=== PATIENT | female | born 1965 | race Two or more races ===

== ENCOUNTER 2025-04-12 21:20 | Inpatient (IN) | payer BC, OTHER ==
[~2025-04-12] VITALS: Ht 149.9 cm; Wt 75.5 kg
[2025-04-12 22:09] LABS: Urine Bacteria None Seen /hpf (None Seen)
--- NOTE | 2025-04-12 22:22 | ED.PDOC ---
General HPI Comments 59-year-old female who came to ER for abdominal pain. Patient has history of recurrent UTIs and kidney stones. States for the past 3 weeks she has been having intermittent episodes of epigastric abdominal pain, and lower back pains. Noted to have nausea but denies any vomiting diarrhea or changes in bowel habits. Patient states she feels like she might be having another kidney infection. Chief Complaint: Abdominal Pain Time Seen by MD: 22:21 Reviewed notes: Nurses Notes Allergies: Coded Allergies: NO KNOWN ALLERGIES (Unverified , 04/12/25) Information Source: Patient Mode of Arrival: Ambulatory Severity: Moderate Inability to void: Moderate Timing: Weeks (3) Duration: Intermittent Has not urinated for: Minutes Prehospital treatment: None Onset: Spontaneous History of: UTI, Kidney stone Location: Abdomen, Other (lower back) associated signs and symptoms: Abdominal Pain, Nausea, Back Pain Past Medical History PAST MEDICAL HISTORY: Kidney Stones, UTI'S Surgical History: Denies all surgeries Surgical History (Other): Surgical removal of kidney stone left 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 REGISTERED NURSE Hx Family History Family History: Reviewed,noncontributory to illness Social History Smoker: Non-Smoker Alcohol: Denies ETOH Use Drugs: Denies Drug Use Lives In: Home Constitutional: denies: chills, diaphoresis, fatigue, fever, malaise, sweats, weakness, others EENTM: denies: blurred vision, double vision, ear bleeding, ear discharge, ear drainage, ear pain, ear ringing, eye pain, eye redness, hearing loss, mouth pain, mouth swelling, nasal discharge, nose bleeding, nose congestion, nose pain, photophobia, tearing, throat pain, throat swelling, voice changes, others Respiratory: denies: cough, hemoptysis, orthopnea, SOB at rest, shortness of breath, SOB with excertion, stridor, wheezing, others Cardiovascular: denies: chest pain, dizzy spells, diaphoresis, Dyspnea on exertion, edema, irregular heart beat, left arm pain, lightheadedness, palpitations, PND, syncope, others Gastrointestinal: reports: abdominal pain; denies: abdomen distended, blood streaked bowels, constipated, diarrhea, dysphagia, difficulty swallowing, hematemesis, melena, nausea, poor appetite, poor fluid intake, rectal bleeding, rectal pain, vomiting, others Genitourinary: denies: abnormal vagina bleeding, burning, dyspareunia, dysuria, flank pain, frequency, hematuria, incontinence, pain, , vagina d ischarge, urgency, others Neurological: denies: dizziness, fainting, headache, left sided numbness, left sided weakness, numbness, paresthesia, pre-existing deficit, right sided numbness, right sided weakness, seizure, speech problems, tingling, tremors, weakness, others Musculoskeletal: reports: back pain; denies: gout, joint pain, joint swelling, muscle pain, muscle stiffness, neck pain, others Integumetry: denies: bruises, change in color, change in hair/nails, dryness, laceration, lesions, lumps, rash, wounds, others Allergic/Immunocompromised: denies: Difficulty Healing, Frequent Infections, Hives, Itching, others Hematologic/Lymphatic: denies: anemia, blood clots, easy bleeding, easy bruising, swollen glands, others Endocrine: denies: excessive hunger, excessive sweating, excessive thirst, excessive urination, flushing, intolerance to cold, intolerance to heat, unexplained weight gain, unexplained weight loss, others Psychiatric: denies: anxiety, bipolar disorder, depression, hopeless, panic disorder, schizophrenia, sleepless, suicidal, others Physical Exam General Appearance: No Apparent Distress, Normal HEENT: Normal ENT Inspection, Pharynx Normal, TMs Normal Neck: Full Range of Motion, Non-Tender, Normal, Normal Inspection Respiratory: Chest Non-Tender, Lungs Clear, No Accessory Muscle Use, No Respiratory Distress, Normal Breath Sounds Cardiovascular: No Edema, No JVD, No Murmur, No Gallop, Normal Peripheral Pulses, Regular Rate/Rhythm Breast Exam: Deferred Gastrointestinal: No Organomegaly, Non Tender, No Pulsatile Mass, Normal Bowel Sounds, Soft Genitalia: Deferred Pelvic: Deferred Rectal: Deferred Extremities: No calf tenderness, Normal capillary refill, Normal inspection, Normal range of motion, Non-tender, No pedal edema Musculoskeletal : Apperance: Normal Neurologic: Alert, sergeant of officers II-XII nml as Tested, No Motor Deficits, Normal Affect, Normal Mood, No Sensory Deficits Cerebellar Function: Normal Reflexes: Normal Skin: Dry, Normal Color, Warm Lymphatic: No Adenopathy Was a procedure done? Was a procedure done?: No Differential Diagnosis Kidney stone (Female): Musculoskeletal pain, Pyelonephritis, Renal failure, Strain, Urinary obstruction, Urolithiasis Urinary Problem (Female): Pyelonephritis, Urinary retention, Urolithiasis, UTI X-Ray, Labs, Meds, VS Vital Signs Date Time Temp Pulse Resp B/P (MAP) Pulse Ox O2 Delivery O2 Flow Rate FiO2 04/12/25 22:00 97.9 79 16 150/70 (96) 96 97.9 Lab Test 04/12/25 22:49 04/12/25 22:00 Range/Units White Blood Count 8.4 4.4-10.8 10^3/uL Red Blood Count 4.42 4.0-5.20 10^6/uL Hemoglobin 13.4 12.2-16.2 g/dL Hematocrit 39.3 36.0-46.0 % Mean Corpuscular Volume 88.9 80.0-100.0 fL Mean Corpuscular Hemoglobin 30.3 28.0-32.0 pg Mean Corpuscular Hemoglobin Concent 34.1 32.0-36.0 g/dL Red Cell Distribution Width 14.1 11.8-14.3 % Platelet Count 378 140-450 10^3/uL Mean Platelet Volume 7.2 6.9-10.8 fL Neutrophils (%) (Auto) 58.9 37.0-80.0 % Lymphocytes (%) (Auto) 30.4 10.0-50.0 % Monocytes (%) (Auto) 6.0 0.0-12.0 % Eosinophils (%) (Auto) 3.8 0.0-7.0 % Basophils (%) (Auto) 0.9 0.0-2.0 % Neutrophils # (Auto) 4.9 1.6-8.6 10 ^3/uL Lymphocytes # (Auto) 2.5 0.4-5.4 10 ^3/uL Monocytes # (Auto) 0.5 0-1.3 10 ^3/uL Eosinophils # (Auto) 0.3 0-0.8 10 ^3/uL Basophils # (Auto) 0.1 0-0.2 10 ^3/uL Nucleated Red Blood Cells 0.1 % Sodium Level 143 136-145 mmol/L Potassium Level 4.1 3.5-5.1 mmol/L Chloride Level 108 H 98-107 mmol/L Carbon Dioxide Level 28 20-31 mmol/L Anion Gap 7 5-15 Blood Urea Nitrogen 16 9-23 mg/dL Creatinine 0.59 0.550-1.02 mg/dL Glomerular Filtration Rate Calc 103 >90 mL/min BUN/Creatinine Ratio 27.1 H 10.0-20.0 Serum Glucose 111 H 74-106 mg/dL Lactic Acid Level 1.4 0.4-2.0 mmol/L Calcium Level 9.5 8.7-10.4 mg/dL Urine Color Light-yellow Yellow Urine Clarity Turbid H Clear Urine pH 6.0 5.0-9.0 Urine Specific [place] 1.026 1.001-1.035 Urine Protein Negative Negative Urine Ketones Negative Negative Urine Blood Trace H Negative /uL Urine Nitrite Negative Negative Urine Bilirubin Negative Negative Urine Urobilinogen Normal Negative mg/dL Urine Leukocyte Esterase 3+ Negative /uL Urine RBC <1 0 - 4 /hpf Urine Microscopic WBC 214 H 0-5 /HPF Urine Squamous Epithelial Cells Few <5 /hpf Urine Bacteria None seen None Seen /hpf Urine Hyaline Casts Few 0 - 2 /lpf Urine Mucus Few None Seen Urine Glucose Normal Normal mg/dL Time of 1ST Reevaluation: 22:17 Reevaluation 1ST: Unchanged Patient Education/Counseling: Diagnosis, Treatment Family Education/Counseling: No Family Present Sepsis Sepsis Reasesment Focused Exam Orders: Laboratory Tests 04/12/25 22:49: Lactic Acid Level 1.4 Departure 1 Departure Time of Disposition: 23:40 (Patient with complicated urinary tract infection. Empirically cover patient antibiotics admit them for further workup.) Impression: Primary Impression: Complicated urinary tract infection Disposition: ADMITTED INPATIENT Admit to: Med Surg Condition: Serious Critical Care Note Critical Care Time?: No Stability Stability form required: No Heart Score Heart Score: Heart Score Response (Comments) Value History N/A 0 EKG N/A 0 Age N/A 0 Risk Factors N/A 0 Troponin N/A 0 Total 0 I personally scribed for QUIQUE ONEILL MD ([email or web address]) on 04/12/25 at 22:22. Electronically submitted by Eitan Myles ([email or web address]). QUIQUE ONEILL MD April 12, 2025 22:22
[2025-04-12 22:30] LABS: Urine Blood TRACE /uL (Negative); Urine Clarity Turbid (Clear); Urine Color Light-Yellow (Yellow); Urine Hyaline Cast FEW /lpf (0 - 2); Urine Mucus FEW (None Seen); Urine Protein, UAD Negative (Negative); Urine Specific Gravity 1.026 (1.001-1.035); Urine Squamous Epithelial Cell FEW /hpf (<5); Urine Urobilinogen Normal (Negative); Urine WBC 214 /HPF (0-5)
[2025-04-12 23:07] LABS: Basophils # (auto) 0.1 10 ^3/uL (0-0.2); Basophils % (auto) 0.9 % (0.0-2.0); Eosinophils # (auto) 0.3 10 ^3/uL (0-0.8); Eosinophils % (auto) 3.8 % (0.0-7.0); Hematocrit 39.3 % (36.0-46.0); Hemoglobin 13.4 g/dL (12.2-16.2); Lymphocytes # (auto) 2.5 10 ^3/uL (0.4-5.4); Lymphocytes % (auto) 30.4 % (10.0-50.0); Mean Corpuscular Hemoglobin 30.3 pg (28.0-32.0); Mean Corpuscular Hgb Conc. 34.1 g/dL (32.0-36.0); Mean Corpuscular Volume 88.9 fL (80.0-100.0); Monocytes # (auto) 0.5 10 ^3/uL (0-1.3); Neutrophils # (auto) 4.9 10 ^3/uL (1.6-8.6); Neutrophils % (auto) 58.9 % (37.0-80.0); Nucleated Red Blood Cells % 0.1 %; Platelet Count (auto) 378 10^3/uL (140-450); Red Blood Cells 4.42 10^6/uL (4.0-5.20); Red Cell Distribution Width 14.1 % (11.8-14.3); White Blood Cell 8.4 10^3/uL (4.4-10.8)
[2025-04-12 23:18] LABS: Potassium 4.1 mmol/L (3.5-5.1); Sodium 143 mmol/L (136-145)
[2025-04-12 23:19] LABS: Anion Gap 7 (5-15); Calcium 9.5 mg/dL (8.7-10.4); Carbon Dioxide 28 mmol/L (20-31)
[2025-04-12 23:24] LABS: BUN/Creatinine Ratio 27.1 (10.0-20.0); Blood Urea Nitrogen 16 mg/dL (9-23); Chloride 108 mmol/L (98-107); Glucose 111 mg/dL (74-106)
[2025-04-12] MEDS ORDERED: CEFEPIME 2GM/50ML NS 50 ML IV ONE (23:45)
[2025-04-13] VITALS (7 sets, daily range): BP systolic 115–136; BP diastolic 47–79; PULSE 69–84; RESP 16–20; TEMP 97.2–97.8; O2SAT 94–98
[2025-04-13] MEDS ORDERED: KETOROLAC TROMETH 30 MG/ML 1ML VIAL IV PRN (01:00)
--- NOTE | 2025-04-13 01:38 | DVH ---
Exam: CT CT AB PEL WO CON-NO ORAL OR IV History: abdominal pain h/o kidney stones Comparison Study: None Technique: Multidetector spiral CT of the abdomen was performed from lung bases to pubic symphysis. Imaging was performed without IV contrast. Axial, coronal and sagittal multiplanar reformats were ob tained from the axial data set by the technologist. Radiation Dose : 1. Abdomen/Pelvis: CTDIvol mGy, DLP mGy*cm. Findings: Evaluation of solid organs is limited due to lack of intravenous contrast use. Lung Bases: No abnormality demonstrated. Liver: Liver is normal in size but demonstrates decreased density consistent with fatty infiltration . No definite focal lesions identified. Gallbladder and Biliary Tree: No abnormality demonstrated. Spleen: No abnormality demonstrated. Pancreas: No abnormality demonstrated. Adrenal Glands: No abnormality demonstrated. Kidneys: Evidence of a punctate calculus measuring 2 mm or less in the lower pole of the left kidne y. A small coil mass noted at the upper pole of the left kidney. Both kidneys are otherwise unremarka ble. No hydroureteronephrosis Bladder: Grossly unremarkable for degree of distention. Bowel: Stomach appears grossly unremarkable. No abnormally dilated or thick-walled loops of large or small bowel noted. Appendix appears unremarkable. Ascites: Absent Lymphadenopathy: No evidence of lymphadenopathy. Abdominal Wall and Mesentery: Unremarkable. Vasculature: Unremarkable. Pelvic Organs: Unremarkable. Musculoskeletal: No bony lesions or fracture. IMPRESSION: No acute abdominal or pelvic findings. Radiation optimization: All CT scans at this facility use at least one of these dose optimization marv hniques: automated exposure control mA and/or kV adjustment per patient size (includes targeted exam s where dose is matched to clinical indication) or iterative reconstruction.
[2025-04-13 02:13] LABS: Alanine Aminotransferase 43 U/L (7-40); Albumin 4.6 g/dL (3.2-4.8); Alkaline Phosphatase 78 U/L (46-116); Aspartate Aminotransferase 11 U/L (13-40); Bilirubin, Direct < 0.1 mg/dL (<0.3); Bilirubin, Total 0.2 mg/dL (0.2-1.0); Total Protein 7.2 g/dL (5.7-8.2)
[2025-04-13] MEDS: SODIUM CHLORIDE 0.9% 1,000 ML IV ONE ×2 (02:18→02:23)
[2025-04-13 02:23] LABS: Lipase 42 U/L (12-53)
[2025-04-13] MEDS: MORPHINE SULFATE 4 MG/ML SYR/VIAL IV ONE (02:23)
[2025-04-13] MEDS: ONDANSETRON HCL 4 MG/2 ML VIAL IV ONE (02:23)
--- NOTE | 2025-04-13 05:17 | DVHHP2 ---
History of Present Illness Reason for Visit: acute intractable abdominal pain History of Present Illness 59-year-old female with a history of recurrent UTIs and nephrolithiasis presents to the ED with complaints of intermittent abdominal and lower back pain for the past 3 weeks. She describes the pain as cramping and reports associated nausea but denies vomiting, diarrhea, or changes in bowel habits. She believes she may be experiencing another kidney infection. She also notes a known history of kidney stones and has had similar episodes in the past. 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 issues Social History: Denies tobacco, alcohol, and illicit drug use Review of Systems Review of Systems General: Denies chills, diaphoresis, fatigue, malaise, weight loss GI: Positive for abdominal pain and nausea, denies vomiting or diarrhea : Positive for dysuria, denies hematuria or frequency Neuro: No weakness or syncope Allergies: Coded Allergies: NO KNOWN ALLERGIES (Unverified , 04/12/25) Medications Current Medications Medications Dose Ordered Sig/Mariann Route Start Time Stop Time Status Last Admin Dose Admin Enoxaparin Sodium 40 mg DAILY SC 04/13/25 10:00 Ketorolac Tromethamine 15 mg Q6HPRN PRN IV 04/13/25 01:00 04/18/25 00:59 Ceftriaxone Sodium 50 ml @ 100 mls/hr DAILY@09 IV 04/13/25 09:00 Exam Vital Signs Vital Signs Date Time Temp Pulse Resp B/P (MAP) Pulse Ox O2 Delivery O2 Flow Rate FiO2 04/13/25 02:53 66 12 143/75 04/13/25 02:46 97 Room Air* 0 21 04/13/25 02:46 97.2 97.2 Exam General: In no acute distress Abdomen: Mild tenderness, no rebound or guarding CV: Regular rate and rhythm Pulmonary: Clear to auscultation bilaterally Neuro: Alert and oriented, no focal deficits Labs/Xrays Labs Test 04/12/25 22:49 04/12/25 22:00 Range/Units White Blood Count 8.4 4.4-10.8 10^3/uL Red Blood Count 4.42 4.0-5.20 10^6/uL Hemoglobin 13.4 12.2-16.2 g/dL Hematocrit 39.3 36.0-46.0 % Mean Corpuscular Volume 88.9 80.0-100.0 fL Mean Corpuscular Hemoglobin 30.3 28.0-32.0 pg Mean Corpuscular Hemoglobin Concent 34.1 32.0-36.0 g/dL Red Cell Distribution Width 14.1 11.8-14.3 % Platelet Count 378 140-450 10^3/uL Mean Platelet Volume 7.2 6.9-10.8 fL Neutrophils (%) (Auto) 58.9 37.0-80.0 % Lymphocytes (%) (Auto) 30.4 10.0-50.0 % Monocytes (%) (Auto) 6.0 0.0-12.0 % Eosinophils (%) (Auto) 3.8 0.0-7.0 % Basophils (%) (Auto) 0.9 0.0-2.0 % Neutrophils # (Auto) 4.9 1.6-8.6 10 ^3/uL Lymphocytes # (Auto) 2.5 0.4-5.4 10 ^3/uL Monocytes # (Auto) 0.5 0-1.3 10 ^3/uL Eosinophils # (Auto) 0.3 0-0.8 10 ^3/uL Basophils # (Auto) 0.1 0-0.2 10 ^3/uL Nucleated Red Blood Cells 0.1 % Sodium Level 143 136-145 mmol/L Potassium Level 4.1 3.5-5.1 mmol/L Chloride Level 108 H 98-107 mmol/L Carbon Dioxide Level 28 20-31 mmol/L Anion Gap 7 5-15 Blood Urea Nitrogen 16 9-23 mg/dL Creatinine 0.59 0.550-1.02 mg/dL Glomerular Filtration Rate Calc 103 >90 mL/min BUN/Creatinine Ratio 27.1 H 10.0-20.0 Serum Glucose 111 H 74-106 mg/dL Lactic Acid Level 1.4 0.4-2.0 mmol/L Calcium Level 9.5 8.7-10.4 mg/dL Total Bilirubin 0.2 0.2-1.0 mg/dL Direct Bilirubin < 0.1 <0.3 mg/dL Aspartate Amino Transferase (AST) 11 L 13-40 U/L Alanine Aminotransferase (ALT) 43 H 7-40 U/L Alkaline Phosphatase 78 46-116 U/L Total Protein 7.2 5.7-8.2 g/dL Albumin 4.6 3.2-4.8 g/dL Lipase 42 12-53 U/L Urine Color Light-yellow Yellow Urine Clarity Turbid H Clear Urine pH 6.0 5.0-9.0 Urine Specific [place] 1.026 1.001-1.035 Urine Protein Negative Negative Urine Ketones Negative Negative Urine Blood Trace H Negative /uL Urine Nitrite Negative Negative Urine Bilirubin Negative Negative Urine Urobilinogen Normal Negative mg/dL Urine Leukocyte Esterase 3+ Negative /uL Urine RBC <1 0 - 4 /hpf Urine Microscopic WBC 214 H 0-5 /HPF Urine Squamous Epithelial Cells Few <5 /hpf Urine Bacteria None seen None Seen /hpf Urine Hyaline Casts Few 0 - 2 /lpf Urine Mucus Few None Seen Urine Glucose Normal Normal mg/dL Assessment/Plan Assessment/Plan #Acute intractable abdominal pain #Complicated UTI #Failure to PO antibiotics #H/o kidney stones Abdominal CT normal Admit Med/surg Regular diet Ceftriaxone IV Tylenol and ketorolac for pain Case discussed with Dr Tsai Full code Plan discussed with: Patient, Other (rn) My Orders Orders - NOEL VILLALOBOS RESIDENT Procedure Category Date Status Time Admit ADMIT 04/13/25 Transmitted 00:47 Code Status CODE 04/13/25 Transmitted 00:47 Vital Signs FLAVIA 04/13/25 In Process 00:47 Review Orders With FLAVIA 04/13/25 In Process Adm. 00:47 Notify Of Changes FLAVIA 04/13/25 In Process From Base 00:47 Advance Directive FLAVIA 04/13/25 In Process 00:47 Patient Condition ORDERS 04/13/25 Transmitted 00:47 Allergies FLAVIA 04/13/25 In Process 00:47 Enoxaparin Sodium PHA 04/13/25 In Process (Lovenox) 10:00 Ketorolac Injection PHA 04/13/25 In Process (Toradol Injection) 01:00 Urine Bacterial LAURA 04/13/25 In Process Culture 00:51 Ceftriaxone 1gm/50ml PHA 04/13/25 In Process D5w (Rocephin) 09:00 Ct Ab Pel Wo Con-No CT 04/13/25 Resulted Oral Or Iv 00:54 Complete Blood Count LAB 04/13/25 Logged 04:23 Comprehensive LAB 04/13/25 Logged Metabolic Panel 04:23 Thyroid Stimulating LAB 04/13/25 Logged Hormone 04:23 Acetaminophen Tablet PHA 04/13/25 Verified (Tylenol Tablet) 05:30 Regular Diet DIET 04/13/25 Verified Breakfast Date of Service: April 13, 2025 Billing Provider: EVELYN TSAI MD Common Visit Codes: 23527-OTQNNSC INP/OBS CARE (HIGH) Secondary Visit Codes: [id number] CARE PLAN 30 MINUTES NOEL VILLALOBOS RESIDENT April 13, 2025 05:17
[2025-04-13 06:12] LABS: Basophils # (auto) 0 10 ^3/uL (0-0.2); Basophils % (auto) 0.6 % (0.0-2.0); Eosinophils # (auto) 0.3 10 ^3/uL (0-0.8); Eosinophils % (auto) 4.8 % (0.0-7.0); Hematocrit 37.1 % (36.0-46.0); Hemoglobin 12.7 g/dL (12.2-16.2); Lymphocytes # (auto) 2.3 10 ^3/uL (0.4-5.4); Mean Corpuscular Hemoglobin 30.3 pg (28.0-32.0); Mean Corpuscular Hgb Conc. 34.2 g/dL (32.0-36.0); Mean Corpuscular Volume 88.8 fL (80.0-100.0); Monocytes # (auto) 0.3 10 ^3/uL (0-1.3); Monocytes % (auto) 4.9 % (0.0-12.0); Neutrophils # (auto) 3.5 10 ^3/uL (1.6-8.6); Neutrophils % (auto) 54.7 % (37.0-80.0); Platelet Count (auto) 364 10^3/uL (140-450); Red Blood Cells 4.18 10^6/uL (4.0-5.20); Red Cell Distribution Width 13.9 % (11.8-14.3); White Blood Cell 6.5 10^3/uL (4.4-10.8)
[2025-04-13 06:34] LABS: Alanine Aminotransferase 37 U/L (7-40); Albumin 4.1 g/dL (3.2-4.8); Alkaline Phosphatase 68 U/L (46-116); Anion Gap 6 (5-15); BUN/Creatinine Ratio 28.9 (10.0-20.0); Blood Urea Nitrogen 13 mg/dL (9-23); Calcium 8.8 mg/dL (8.7-10.4); Carbon Dioxide 28 mmol/L (20-31); Glucose 99 mg/dL (74-106); Sodium 144 mmol/L (136-145); Total Protein 6.4 g/dL (5.7-8.2)
[2025-04-13 06:39] LABS: Aspartate Aminotransferase 11 U/L (13-40); Bilirubin, Total 0.2 mg/dL (0.2-1.0); Chloride 110 mmol/L (98-107)
[2025-04-13] MEDS: cefTRIAXone 1GM/50ML D5W 50 ML IV SCH (09:04)
[2025-04-13] MEDS: ENOXAPARIN SOD 40 MG/0.4 ML SYRINGE SC SCH (09:05)
--- NOTE | 2025-04-13 10:17 | DVHPNRES ---
Progress Note Date Seen: April 13, 2025 Resident Creating Document: SERGIOJAMESLUCICHUY RESIDENT Medical Necessity Reason Pt with a Central, PICC or Fol: No Subjective Review of Systems Patient is a 59-year-old female with a past medical history of left staghorn calculi status post surgical resection in 2016 presented to the ED with a chief complaint of abdominal pain for the last 3 weeks. Patient reports that she started to have upper abdominal pain in the epigastrium which got worsened with food intake and she had symptoms of heartburn and easy satiety and did she complain of lower abdominal pain which at times radiated along the flanks to the back. Patient has also been having back pain. She reported that she has been taking ibuprofen since the pain started. Patient denied any episode of nausea, vomiting no diarrhea or constipation. Patient has history of recurrent UTIs. She reports about 5 years ago underwent endoscopy with a gastro group when she was diagnosed with hiatal hernia. Patient does not report any weight loss, hematemesis or hematochezia. One episode of dark stool but is unsure whether it was black. Past medical history: As per HPI Past surgical history: Surgical removal of the staghorn calculus Social history: Patient lives with family and denies smoking, alcohol, drug use Home medications: None Review of systems Seen and examined at bedside Reports that the abdominal pain has improved a little bit but still complains of lower back pain Denies nausea, vomiting, diarrhea or constipation No fever or chills No focal weakness, no lower extremity weakness or sensory deficit Objective vital signs Vital Sign Date Time Temp Pulse Resp B/P (MAP) Pulse Ox O2 Delivery O2 Flow Rate FiO2 04/13/25 08:57 97.7 84 18 123/72 (89) 98 97.7 04/13/25 08:00 Room Air* 0 21 Total Intake and Output 04/12/25 04/12/25 04/13/25 15:00 23:00 07:00 Intake Total 0 ml Balance 0 ml medications Current Medications Medications Dose Ordered Sig/Mariann Route Start Time Stop Time Status Last Admin Dose Admin Enoxaparin Sodium 40 mg DAILY SC 04/13/25 10:00 04/13/25 09:05 40 MG Ketorolac Tromethamine 15 mg Q6HPRN PRN IV 04/13/25 01:00 04/18/25 00:59 Ceftriaxone Sodium 50 ml @ 100 mls/hr DAILY@09 IV 04/13/25 09:00 04/13/25 09:04 100 MLS/HR Acetaminophen 650 mg Q4HP PRN PO 04/13/25 05:30 Examination Gen - no pallor, no icterus, no cyanosis, no clubbing, no LAD, no edema . Skin - Patients skin is warm and dry. HEENT - normocephalic, atraumatic, moist mucous membranes. Neck - full ROM, no LAD, no JVD Pulmonary - B/L equal breath sounds, no crackles, no wheezing, no stridor. cardiovascular - regular S1,S2 heard, no added sounds, no murmurs heard. peripheral pulses normal radial 2+, pedal 2+. capillary refill normal <2 secs. GI - soft, mildly tender abdomen, questionable Wells's sign. no hepatospleenomegaly. Bowel sounds normoactive Neurological - Patient is A/O X 3 . Bilateral upper extremity strength 5/5, bilateral lower extremity strength 5/5, no facial droop, normal speech, no tremor, no sensory deficiets. laboratory and microbiology Laboratory Tests 04/13/25 05:08 Test 04/13/25 05:08 Range/Units Serum Glucose 99 74-106 mg/dL Problem List/Assessment/Plan Problem List/Assessment/Plan Acute intractable abdominal pain ? acute gastritis ? acute cholecystitis h/o hiatal hernia dyspepsia ? Hepatic steatosis - protonix - carafate - no NSAIDS - CT abdomen pelvis showed no abnormality in the gallbladder - right upper quadrant pain, pending gallbladder ultrasound - ceftriaxone - full liquid diet UTI likely acute cystitis punctate left kidney stones Left kidney upper pole mass - CT abd pelvis showed punctate calculus measuring 2 mm in the lower pole of left kidney, small coil mass noted in the upper pole of left kidney - kidney ultrasound pending - urine culture pending - IV antibiotic DVT prophylaxis: Enoxaparin Goals of care discussed with the patient for over 27 mins. Full code plan discussed with Dr. Ruiz Plan discussed with: Patient Date of Service: April 13, 2025 Billing Provider: DEONNA RUIZ MD Common Visit Codes: [id number] INP/OBS CARE(HIGH) LIZABETH LUIS RESIDENT April 13, 2025 10:17 DEONNA RUIZ MD April 14, 2025 05:21
[2025-04-13] MEDS: PANTOPRAZOLE 40 MG/10 ML VIAL INJ IV ONE (11:25)
[2025-04-13] MEDS: SUCRALFATE 1 GM/10 ML ORAL SUSP PO ONE (11:25)
[2025-04-13] MEDS: ACETAMINOPHEN 325 MG TAB PO PRN (17:54)
--- NOTE | 2025-04-13 18:57 | DVH ---
EXAM: US ABDOMEN COMPLETE SONOGRAM HISTORY: left kidney upper pole mass CHOLECYSTITIS COMPARISON: None TECHNIQUE: Multiple longitudinal and transverse sonographic images of the abdomen were obtained. Dopp ler was applied as indicated. FINDINGS: [PANCREAS]: The visualized portions of the pancreas are unremarkable. [AORTA]: Normal [LIVER]: 16.1 cm. increased echogenicity. There is no focal hepatic mass lesion detected. [GALLBLADDER]: Gallbladder wall measures 0.2 cm. There is no gallbladder sludge or shadowing gallston e. There is no sonographic Wells sign. [BILIARY TREE]: Not well-visualized [SPLEEN]: 10.6 cm [ASCITES]: No free fluid is demonstrated. [VESSELS]: The main portal vein is patent on color Doppler evaluation. The inferior vena cava is mckeon nt on color Doppler evaluation. [RIGHT KIDNEY]: 12 cm. normal cortical echogenicity and normal contour. No hydronephrosis [LEFT KIDNEY]: 11 cm. normal cortical echogenicity and normal contour. No hydronephrosis IMPRESSION: 1. Heterogeneously echogenic liver, which is a nonspecific finding and may represent hepatic steatosi s and/or other underlying hepatocellular pathology.
[2025-04-13] MEDS: SUCRALFATE 1 GM/10 ML ORAL SUSP PO SCH (20:55)
[2025-04-14] VITALS (7 sets, daily range): BP systolic 117–153; BP diastolic 51–75; PULSE 63–79; RESP 16–17; TEMP 97.6–98.4; O2SAT 95–99
[2025-04-14] MEDS: PANTOPRAZOLE 40 MG TAB PO SCH (05:58)
[2025-04-14 06:47] LABS: Basophils # (auto) 0 10 ^3/uL (0-0.2); Basophils % (auto) 0.8 % (0.0-2.0); Eosinophils # (auto) 0.4 10 ^3/uL (0-0.8); Eosinophils % (auto) 7.4 % (0.0-7.0); Hematocrit 39.2 % (36.0-46.0); Hemoglobin 13.3 g/dL (12.2-16.2); Lymphocytes # (auto) 2.6 10 ^3/uL (0.4-5.4); Lymphocytes % (auto) 45.1 % (10.0-50.0); Mean Corpuscular Hemoglobin 30.1 pg (28.0-32.0); Mean Corpuscular Volume 88.8 fL (80.0-100.0); Monocytes # (auto) 0.3 10 ^3/uL (0-1.3); Neutrophils # (auto) 2.4 10 ^3/uL (1.6-8.6); Neutrophils % (auto) 41.7 % (37.0-80.0); Nucleated Red Blood Cells % 0.3 %; Platelet Count (auto) 362 10^3/uL (140-450); Red Blood Cells 4.41 10^6/uL (4.0-5.20); White Blood Cell 5.7 10^3/uL (4.4-10.8)
[2025-04-14 06:59] LABS: Sodium 144 mmol/L (136-145)
[2025-04-14 07:00] LABS: Anion Gap 6 (5-15); Calcium 9.9 mg/dL (8.7-10.4); Carbon Dioxide 28 mmol/L (20-31)
[2025-04-14 07:05] LABS: Glucose 91 mg/dL (74-106)
[2025-04-14 07:07] LABS: Blood Urea Nitrogen 9 mg/dL (9-23); Chloride 110 mmol/L (98-107)
[2025-04-14] MEDS ORDERED: SUCR1SUS5 PO (15:20)
[2025-04-14] MEDS ORDERED: PANT40TA2 PO (15:20)
[2025-04-14] MEDS ORDERED: NITR-52 PO (15:20)
--- NOTE | 2025-04-14 15:28 | DVHDSRES ---
Discharge Summary Date of Admission Resident Creating Document: LIZABETH LIUS RESIDENT April 13, 2025 at 00:47 Date of Discharge: April 14, 2025 Admitting Diagnosis Acute intractable abdominal pain Wounds: none Labs/Diagnostic Data: Laboratory Results Test 04/14/25 05:07 04/13/25 05:08 04/12/25 22:49 04/12/25 22:00 White Blood Count 5.7 10^3/uL (4.4-10.8) Red Blood Count 4.41 10^6/uL (4.0-5.20) Hemoglobin 13.3 g/dL (12.2-16.2) Hematocrit 39.2 % (36.0-46.0) Mean Corpuscular Volume 88.8 fL (80.0-100.0) Mean Corpuscular Hemoglobin 30.1 pg (28.0-32.0) Mean Corpuscular Hemoglobin Concent 34.0 g/dL (32.0-36.0) Red Cell Distribution Width 14.0 % (11.8-14.3) Platelet Count 362 10^3/uL (140-450) Mean Platelet Volume 7.5 fL (6.9-10.8) Neutrophils (%) (Auto) 41.7 % (37.0-80.0) Lymphocytes (%) (Auto) 45.1 % (10.0-50.0) Monocytes (%) (Auto) 5.0 % (0.0-12.0) Eosinophils (%) (Auto) 7.4 % (0.0-7.0) Basophils (%) (Auto) 0.8 % (0.0-2.0) Neutrophils # (Auto) 2.4 10 ^3/uL (1.6-8.6) Lymphocytes # (Auto) 2.6 10 ^3/uL (0.4-5.4) Monocytes # (Auto) 0.3 10 ^3/uL (0-1.3) Eosinophils # (Auto) 0.4 10 ^3/uL (0-0.8) Basophils # (Auto) 0 10 ^3/uL (0-0.2) Nucleated Red Blood Cells 0.3 % Sodium Level 144 mmol/L (136-145) Potassium Level 4.0 mmol/L (3.5-5.1) Chloride Level 110 mmol/L (98-107) Carbon Dioxide Level 28 mmol/L (20-31) Anion Gap 6 (5-15) Blood Urea Nitrogen 9 mg/dL (9-23) Creatinine 0.53 mg/dL (0.550-1.02) Glomerular Filtration Rate Calc 106 mL/min (>90) BUN/Creatinine Ratio 17.0 (10.0-20.0) Serum Glucose 91 mg/dL (74-106) Calcium Level 9.9 mg/dL (8.7-10.4) Total Bilirubin 0.2 mg/dL (0.2-1.0) Aspartate Amino Transferase (AST) 11 U/L (13-40) Alanine Aminotransferase (ALT) 37 U/L (7-40) Alkaline Phosphatase 68 U/L (46-116) Total Protein 6.4 g/dL (5.7-8.2) Albumin 4.1 g/dL (3.2-4.8) Thyroid Stimulating Hormone (TSH) 0.72 uIU/mL (0.55-4.78) Lactic Acid Level 1.4 mmol/L (0.4-2.0) Direct Bilirubin < 0.1 mg/dL (<0.3) Lipase 42 U/L (12-53) Urine Color Light-yellow (Yellow) Urine Clarity Turbid (Clear) Urine pH 6.0 (5.0-9.0) Urine Specific [place] 1.026 (1.001-1.035) Urine Protein Negative (Negative) Urine Ketones Negative (Negative) Urine Blood Trace /uL (Negative) Urine Nitrite Negative (Negative) Urine Bilirubin Negative (Negative) Urine Urobilinogen Normal mg/dL (Negative) Urine Leukocyte Esterase 3+ /uL (Negative) Urine RBC <1 /hpf (0 - 4) Urine Microscopic WBC 214 /HPF (0-5) Urine Squamous Epithelial Cells Few /hpf (<5) Urine Bacteria None seen /hpf (None Seen) Urine Hyaline Casts Few /lpf (0 - 2) Urine Mucus Few (None Seen) Urine Glucose Normal mg/dL (Normal) Other Laboratory Tests 04/14/25 05:07 Brief Hx & Hospital Course: Patient is a 59-year-old female with a past medical history of left staghorn calculi status post surgical resection in 2017 presented to the ED with a chief complaint of abdominal pain for the last 3 weeks. Patient reports that she started to have upper abdominal pain in the epigastrium which got worsened with food intake and she had symptoms of heartburn and easy satiety and did she complain of lower abdominal pain which at times radiated along the flanks to the back. Patient has also been having back pain. She reported that she has been taking ibuprofen since the pain started. Patient denied any episode of nausea, vomiting no diarrhea or constipation. Patient has history of recurrent UTIs. She reports about 5 years ago underwent endoscopy with a gastro group when she was diagnosed with hiatal hernia. Patient does not report any weight loss, hematemesis or hematochezia. One episode of dark stool but is unsure whether it was black. Past medical history: As per HPI Past surgical history: Surgical removal of the staghorn calculus Social history: Patient lives with family and denies smoking, alcohol, drug use Home medications: None Brief hospital course Patient came with a chief complaint of abdominal pain for [address] abdomen pelvis without contrast showed no acute abdominal or pelvic findings, evidence of punctate calculus measuring 2 mm old less in the lower pole of left kidney and a small while mass at the upper pole of left kidney. Abdominal ultrasound was done which did not show any evidence of cholecystitis, heterogeneously echogenic liver which is a nonspecific finding and may represent hepatic steatosis, left kidney normal cortical echogenicity and contour. Patient was started on Protonix and Carafate which helped improve the symptoms but she continued to complain of lower back pain with a negative straight leg raise test and no musculoskeletal abnormality noted on abdominopelvic CT scan, no midline tenderness and patient was explained that the back could be due to long sitting hours at her job and was advised to do lower back stretching and avoid using NSAIDs for pain which could worsen her possible gastritis. Urinalysis showed evidence of UTI following which urine was sent for culture, preliminary report [id number] colony-forming units and patient denied any symptoms of dysuria. Patient was able to eat regular diet and tolerated well. Discharged in stable condition Discharge plan Discharged in stable condition to home Medications: Protonix 40 mg daily, sucralfate 1 g p.o. b.i.d., nitrofurantoin 100 mg b.i.d. for 5 days Examination on day of discharge: Gen - no pallor, no icterus, no cyanosis, no clubbing, no LAD, no edema . Skin - Patients skin is warm and dry. HEENT - normocephalic, atraumatic, moist mucous membranes. Neck - full ROM, no LAD, no JVD Pulmonary - B/L equal breath sounds, no crackles, no wheezing, no stridor. cardiovascular - regular S1,S2 heard, no added sounds, no murmurs heard. peripheral pulses normal radial 2+, pedal 2+. capillary refill normal <2 secs. GI - soft, mildly tender abdomen, questionable Wells's sign. no hepatosplenomegaly. Bowel sounds normoactive Neurological - Patient is A/O X 3 . Bilateral upper extremity strength 5/5, bilateral lower extremity strength 5/5, no facial droop, normal speech, no tremor, no focal deficits Goals of care discussed with the patient for 20 minutes; full code Plan discussed with Dr. Santamaria Consults/Reason for consult none Operations or Procedures none Condition at Discharge: Good Final Diagnosis/Problems List Acute intractable abdominal pain ? acute gastritis acute cholecystitis ruled out h/o hiatal hernia dyspepsia UTI likely acute cystitis punctate left kidney stones Left kidney upper pole mass Discharge Disposition: Home Discharge Instruct/Medications Diet: Regular Diet comment: Avoid excessive coffee, spicy foods Activity: No Restrictions, As Tolerated Follow Up/Referral: Follow up with the PCP in one week Medications: as per EMR including oral antibiotics Avoid NSAIDs Discharge Statement: "Patient was advised to return to the ER or call 911 if any headaches, dizziness, shortness of breath, chest pain, abdominal pain, bleeding, fevers, or worsening of medical condition. Patient was counseled about treatment plan, medications, possible side effects, patientverbalized understanding. All questions were answered to the best of my ability. This discharge took greater then 30 minutes in planning, reviewing documentation, counseling the patient, and discussing with other team members." ASSESSMENT ASSESSMENT Assessment Acute intractable abdominal pain ? acute gastritis acute cholecystitis ruled out h/o hiatal hernia dyspepsia UTI likely acute cystitis punctate left kidney stones Left kidney upper pole mass Addendum Addendum Addendum I was physically present for the irene portions of the service provided to patient by THE RESIDENT. I have reviewed the documentation, discussed the case with resident and agree with the resident's documentation except as noted. Also the patient's clinical case was discussed with the patient's nurse. This medical document was created using an electronic medical record system with computerized dictation system. Although this document has been carefully reviewed, there might still be some phonetic and typographical errors. These areas are purely typographical due to imperfections of the software programs, and do not reflect any compromise in the patient's medical care. Late signature. Date of Service: April 14, 2025 Billing Provider: KJ SANTAMARIA MD Common Visit Codes: 15142-FEL/OBS DISCH DAY >30min Secondary Visit Codes: 12246-ITIKSAGD CARE PLAN 30 MINUTES (20 minutes) LIZABETH LUIS RESIDENT April 14, 2025 15:28 KJ SANTAMARIA MD Apr 15, 2025 12:54
== END 2025-04-14 18:30 | disposition home or self-care (01) | DRG 392 ==
LOC: ER 21:20 → OVERFLOW 04-13 00:47 → WEST WING 04-13 03:09
PROVIDERS: ADMIT Internal Medicine; ATTEND Internal Medicine
DX: K29.00 Acute gastritis without bleeding (principal); N30.00 Acute cystitis without hematuria; Z87.442 Personal history of urinary calculi; Z79.899 Other long term (current) drug therapy
CPT/HCPCS: 36415; 74176; 76700; 80048; 80053; 80076; 81001; 83605; 83690; 84443; 85025; 87040; 87086; 96374; 96375; G0378; J2405; J2470